=== PATIENT | female | born 1995 | race African-American/Black ===

== ENCOUNTER 2024-04-15 17:26 | Emergency (ER) | payer OTHER ==
[2024-04-15] MEDS ORDERED: MORPHINE 4 MG/ML SYR ONE (17:51)
[2024-04-15] MEDS ORDERED: ONDANSETRON 4 MG/2 ML VIAL ONE (17:51)
[2024-04-15] MEDS ORDERED: NA CHLORIDE 0.9% 1,000 ML ONE (17:52)
[2024-04-15 18:00] LABS: Absolute Eosinophils 0.2 K/uL (0-0.5); Absolute Lymphocytes (CBC) 1.9 K/uL (0.7-4.9); Absolute Monocytes 0.9 K/uL (0.1-1.3); Absolute Neutrophil 5.7 K/uL (1.8-8.0); Basophils % 0.5 % (0-1.3); Eosinophils % 2.4 % (0-4.4); Hematocrit 29.9 % (36.0-45.0); Hemoglobin 9.4 g/dL (12.0-15.0); Lymphocytes % 21.3 % (15.3-44.8); MCHC 31.5 g/dL (32.0-36.0); MCV 79.2 fL (80-100); MPV 9.6 fL (7.6-11.3); Monocytes % 10.2 % (3.3-12.3); Neutrophils % 65.6 % (41.7-73.7); Nucleated Red Blood Cells % 0.1 % (0-0); Platelets 314 thou/uL (152-406); RBC Red Blood Cell Count 3.78 M/uL (3.86-4.86); Red Cell Distribution Width 18.4 % (12.1-15.2)
[2024-04-15 18:19] LABS: AST/SGOT 12 U/L (15-37); Albumin 3.4 g/dL (3.4-5.0); Albumin/Globulin Ratio 0.9 (1.1-1.8); Alkaline Phosphatase 69 U/L (45-117); Anion Gap 6.9 mEq/L (5.0-15.0); BUN Blood Urea Nitrogen 6 mg/dL (7-18); Bicarbonate 25 mEq/L (21-32); Bilirubin Total 0.2 mg/dL (0.2-1.0); Globulin 3.9 g/dL (2.3-3.5); Glomerular Filtration Rate 94 ml/min (=/>90); Glucose Level 94 mg/dL (74-106); Lipase 26 U/L (13-75); Potassium 3.9 mEq/L (3.5-5.1); Protein, Total 7.3 g/dL (6.4-8.2); Sodium Level 140 mEq/L (136-145)
[2024-04-15 18:21] LABS: ALT/SGPT < 14 U/L (13-56)
[2024-04-15] MEDS ORDERED: KETOROLAC 30 MG/ML INJ ONE (18:39)
[2024-04-15 19:22] LABS: Specific Gravity 1.021 (1.005-1.030); Sqamous Epithelial <5 /HPF (None Seen); Urine Bacteria <20 /HPF (<20); Urine Bilirubin NEGATIVE (Negative); Urine Blood Negative (Negative); Urine Clarity Turbid (Clear); Urine Color Light-Yellow (Yellow); Urine Culture Reflex Order REFLEXED; Urine Glucose NEGATIVE (Negative); Urine Ketones NEGATIVE (Negative); Urine Microscopic Reflex YN ORDER UMIC; Urine Mucus Slight /HPF (None Seen); Urine Nitrite NEGATIVE (Negative); Urine Protein NEGATIVE (Negative); Urine RBC <5 /HPF (None Seen); Urine Urobilinogen Normal (Normal); Urine WBC 20-50 /HPF (<5); Urine WBC Clump Rare /HPF (None Seen); Urine Yeast (Budding) Trace /HPF (None Seen)
--- NOTE | 2024-04-15 19:48 | RAD REPORT ---
EXAMINATION: CT ABDOMEN AND PELVIS WITH CONTRAST CLINICAL INDICATION: Abdominal pain TECHNIQUE: CT abdomen and pelvis was performed, after the administration of 100 cc Isovue-300.. Sagit coni and coronal reconstructions were obtained. One or more of the following dose reduction techniques were used: Automated exposure control, adjustment of the mA and kV according to patient si ze, and iterative reconstruction. Unless otherwise specified, incidental findings do not require dedicated imaging follow-up. [id number]. Oral contrast was not given which limits evaluation of bowel and appendix. COMPARISON: none FINDINGS: Minimal bilateral pleural effusions Liver, spleen, pancreas, adrenals and kidneys unremarkable There is no evidence of diverticulitis. Normal appendix 2.9 cm low-density mass within the anterior tissue to the right of midline and pelvis. No adnexal mass : IMPRESSION: 2.9 cm low-density mass within the anterior tissue to the right of midline and pelvis consistent with abscess :
[2024-04-15] MEDS ORDERED: LIDOCAINE 1% 20 ML MDV ONE (20:03)
--- NOTE | 2024-04-15 20:34 | EDPHYS ---
Physician Documentation [facility] Name: Eva Grigsby Age: 28 yrs Sex: Female : 1995 Arrival Date: 04/15/2024 Time: 17:26 Bed 5 Private MD: ED Physician Jesse Bonilla HPI: 04/15 17:44 This 28 yrs old Black Female presents to ER via Ambulatory with complaints of Abdominal sb4 Pain. 17:44 patient reports lower abdominal pain associated with an abscess. she states that it sb4 developed about 4 days ago. she says that she gets these somewhat frequently but that they typically drain and resolve on their own. denies any fever. denies any chronic medical problems or daily medications. 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 - Infectious Disease History:: Denies. - Social history:: Smoking status: Patient denies any tobacco usage or history of. ROS: 17:46 Constitutional: Negative for fever, chills, and weight loss, sb4 17:46 Abdomen/GI: Positive for abdominal pain, 17:46 Skin: Positive for abscess, 17:46 All other systems are negative, Exam: 17:49 Head/Face: Normocephalic, atraumatic. Eyes: Extra-ocular motions intact. Periorbital sb4 areas with no swelling, redness, or edema. ENT: Mucous membranes moist. 17:49 Constitutional: The patient appears alert, awake, in obvious pain, uncomfortable, 17:49 Abdomen/GI: Inspection: abdomen appears normal, Bowel sounds: normal, Palpation: soft, mild abdominal tenderness, in all quadrants, 17:49 Skin: abscess, that is small, of the suprapubic area, with induration, with surrounding cellulitis, Vital Signs: 17:39 BP 143 / 97; Pulse 90; Resp 24; Temp 97.4; Pulse Ox 99% ; Weight 136.08 kg; Height 5 ll1 ft. 11 in. ; Pain 10/10; 18:38 BP 158 / 94; Pulse 79; Resp 18; Pulse Ox 100% on R/A; mb9 19:16 BP 135 / 82; Pulse 80; Resp 17; Temp 97.4; Pulse Ox 99% ; Pain 2/10; bm8 20:39 BP 129 / 88; Pulse 73; Resp 17; Temp 97.4; Pulse Ox 100% ; Pain 0/10; bm8 17:39 Body Mass Index 41.84 (136.08 kg, 180.34 cm) ll1 17:39 Pain Scale: Adult ll1 19:16 Pain Scale: Adult bm8 20:39 Pain Scale: Adult bm8 [place] Coma Score: 19:16 Eye Response: spontaneous(4). Motor Response: obeys commands(6). Verbal Response: bm8 oriented(5). Total: 15. 20:39 Eye Response: spontaneous(4). Motor Response: obeys commands(6). Verbal Response: bm8 oriented(5). Total: 15. Procedures: 20:33 I \T\ D: Incision and drainage was performed for an abscess of the suprapubic area sb4 Prepped with Betadine, Anesthetized with 3 ml's 1% Lidocaine. Incised with #11 blade. Drained moderate amount purulent fluid. Dressing: sterile 4x4 gauze, the patient tolerated the procedure well. MDM: 17:32 Patient medically screened. sb4 20:33 Data reviewed: vital signs, nurses notes, lab test result(s), radiologic studies, and sb4 as a result, I will discharge patient. Counseling: I had a detailed discussion with the patient and/or guardian regarding the historical points, exam findings, and any diagnostic results supporting the discharge/admit diagnosis, lab results, radiology results, the need for outpatient follow up, for definitive care, to return to the emergency department if symptoms worsen or persist or if there are any questions or concerns that arise at home. 04/15 17:38 Order name: CBC with Diff; Complete Time: 18:18 sb4 04/15 17:38 Order name: CMP; Complete Time: 18:24 sb4 04/15 17:38 Order name: Lipase; Complete Time: 18:24 sb4 04/15 17:38 Order name: Test, Urine; Complete Time: 19:23 sb4 04/15 17:38 Order name: Urinalysis w/ reflexes; Complete Time: 19:23 sb4 04/15 19:26 Order name: Urine Culture EDMS 04/15 17:38 Order name: CT Abd/Pelvis - IV Contrast Only; Complete Time: 19:49 sb4 04/15 17:38 Order name: IV Saline Lock; Complete Time: 17:56 sb4 04/15 17:38 Order name: Labs collected and sent; Complete Time: 17:56 sb4 04/15 19:52 Order name: Incision \T\ Drainage Setup; Complete Time: 20:00 sb4 Administered Medications: 17:50 Drug: Ondansetron IVP 4 mg IVP once; over 2 minutes Route: IVP; Site: right antecubital;mb9 18:38 Follow up: Response: No adverse reaction mb9 17:56 Drug: morphine IVP or IV 4 mg IVP once over 4 mins Route: IVP; Infused Over: 4 mins; mb9 Site: right antecubital; 18:38 Follow up: Response: No adverse reaction mb9 17:56 Drug: NS 0.9% IV 1000 ml IV at 1 bolus Per protocol; to be given as a bolus over 60 mb9 minutes Route: IV; Rate: 1 bolus; Site: right antecubital; 18:38 Follow up: Response: No adverse reaction; IV Status: Completed infusion mb9 18:42 Drug: Ketorolac IVP 30 mg IVP once Route: IVP; Site: right antecubital; mb9 20:00 Follow up: Response: No adverse reaction bm8 20:08 Drug: Lidocaine Infiltration (1 %) 20 ml 20 ml Infiltration once; to bedside {Note: by bm8 provider.} Volume: 20 ml; Route: Infiltration; Site: affected area; 20:40 Follow up: Response: No adverse reaction bm8 20:39 Drug: Trimethoprim-Sulfamethoxazole PO (160 mg-800 mg (DS) 1 tablet PO once Route: PO; bm8 20:40 Follow up: Response: Medication administered at discharge. bm8 Disposition Summary: 04/15/24 20:34 Discharge Ordered Notes: Location: Home sb4 Problem: new sb4 Symptoms: have improved sb4 Condition: Stable sb4 Diagnosis - Cutaneous abscess of abdominal wall sb4 Followup: sb4 - With: Emergency Department - When: As needed - Reason: Fever > 102 F, Worsening of condition Discharge Instructions: - Discharge Summary Sheet sb4 - Skin Abscess, [id number] sb4 - Incision and Drainage, Care After sb4 Forms: - Antibiotic Education sb4 - Patient Portal Instructions sb4 - Leadership Thank You Letter sb4 Prescriptions: - Bactrim DS 800-160 mg Oral Tablet - take 1 tablet ORAL route every 12 hours for 10 days; 20 tablet; Refills: 0, sb4 Product Selection Permitted Addendum: 04/17/2024 18:02 I was immediately available for consultation during this patient's visit. I did not e c2 personally see the patient or discuss the patient with the NENO. . Signatures: Dispatcher [employer] Alexandra Alvarez, RN RN ll1 Lea Kline, MIKE PANini sb4 Nelida Ragland RN RN mb9 Jesse Bonilla MD MD ec2 Vargas Casanova RN RN bm8 Corrections: (The following items were deleted from the chart) 04/15 17:39 17:39 Abdomen Pelvis W Con+CT.RAD.BRZ ordered. EDMS EDMS
--- NOTE | 2024-04-15 20:34 | ER ---
Nurse's Notes [facility] Name: Eva Grigsby Age: 28 yrs Sex: Female : 1995 Arrival Date: 04/15/2024 Time: 17:26 Bed 5 Private MD: Diagnosis: Cutaneous abscess of abdominal wall Presentation: 04/15 17:39 Chief complaint: Patient states: Abscess to lower abdominal area for 4 days. No ll1 drainage or fever. States small abscess to inner thighs also. Coronavirus screen: Client denies travel out of the [place] in the last 14 days. At this time, the client does not indicate any symptoms associated with coronavirus-19. Ebola Screen: Patient denies travel to an Ebola-affected area in the 21 days before illness onset. Initial Sepsis Screen: Does the patient meet any 2 criteria? No. Patient's initial sepsis screen is negative. Does the patient have a suspected source of infection? No. Patient's initial sepsis screen is negative. Risk Assessment: Do you want to hurt yourself or someone else? Patient reports no desire to harm self or others. Onset of symptoms was April 12, 2024. 17:39 Method Of Arrival: Ambulatory ll1 17:39 Acuity: CLAUDIA 3 ll1 Triage Assessment: 17:41 General: Appears distressed, uncomfortable, ill, Behavior is cooperative, appropriate ll1 for age, anxious. Pain: Complains of pain in abdomen Pain currently is 10 out of 10 on a pain scale. Quality of pain is described as aching. GI: Reports lower abdominal pain. Derm: Abscess located on abdomen is quarter sized, has no drainage, is hot to touch, is red. 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 - Infectious Disease History:: Denies. - Social history:: Smoking status: Patient denies any tobacco usage or history of. Screenin:37 [facility] ED Fall Risk Assessment (Adult) History of falling in the last 3 months, mb9 including since admission No falls in past 3 months (0 pts) Confusion or Disorientation No (0 pts) Intoxicated or Sedated No (0 pts) Impaired Gait No (0 pts) Mobility Assist Device Used No (0 pt) Altered Elimination No (0 pt) Score/Fall Risk Level 0 - 2 = Low Risk Oriented to surroundings, Maintained a safe environment, Educated pt \T\ family on fall prevention, incl call for assistance when getting out of bed. Abuse screen: Denies threats or abuse. Nutritional screening: No deficits noted. Tuberculosis screening: No symptoms or risk factors identified. Assessment: 17:56 General: Appears in no apparent distress. Behavior is calm, cooperative. Pain: mb9 Complains of pain in abdomen and suprapubic area Pain currently is 10 out of 10 on a pain scale. Quality of pain is described as throbbing, Pain began 2-3 days ago. Is continuous. Neuro: Moe Agitation-Sedation Scale (RASS): 0 - Alert and Calm Level of Consciousness is awake, alert, obeys commands, Oriented to person, place, time, situation, Appropriate for age. Cardiovascular: Patient's skin is warm and dry. Respiratory: Airway is patent Respiratory effort is even, unlabored, Respiratory pattern is regular, agonal. GI: Bowel sounds present X 4 quads. Abd is soft and non tender X 4 quads. : No signs and/or symptoms were reported regarding the genitourinary system. EENT: No signs and/or symptoms were reported regarding the EENT system. Derm: Abscess located on abdomen is quarter sized, has no drainage, is red, is raised. Musculoskeletal: Range of motion: intact in all extremities. 19:16 Reassessment: Patient appears in no apparent distress at this time. Patient and/or bm8 family updated on plan of care and expected duration. Pain level reassessed. Patient is alert, oriented x 3, equal unlabored respirations, skin warm/dry/pink. Pain: Pain currently is 2 out of 10 on a pain scale. Derm: Abscess located on groin is quarter sized, has no drainage, is red, is raised. 20:39 Reassessment: Patient appears in no apparent distress at this time. Patient and/or bm8 family updated on plan of care and expected duration. Pain level reassessed. Patient is alert, oriented x 3, equal unlabored respirations, skin warm/dry/pink. Patient denies pain at this time. Patient states feeling better. Patient states symptoms have improved. Vital Signs: 17:39 BP 143 / 97; Pulse 90; Resp 24; Temp 97.4; Pulse Ox 99% ; Weight 136.08 kg; Height 5 ll1 ft. 11 in. ; Pain 10/10; 18:38 BP 158 / 94; Pulse 79; Resp 18; Pulse Ox 100% on R/A; mb9 19:16 BP 135 / 82; Pulse 80; Resp 17; Temp 97.4; Pulse Ox 99% ; Pain 2/10; bm8 20:39 BP 129 / 88; Pulse 73; Resp 17; Temp 97.4; Pulse Ox 100% ; Pain 0/10; bm8 17:39 Body Mass Index 41.84 (136.08 kg, 180.34 cm) ll1 17:39 Pain Scale: Adult ll1 19:16 Pain Scale: Adult bm8 20:39 Pain Scale: Adult bm8 [place] Coma Score: 19:16 Eye Response: spontaneous(4). Motor Response: obeys commands(6). Verbal Response: bm8 oriented(5). Total: 15. 20:39 Eye Response: spontaneous(4). Motor Response: obeys commands(6). Verbal Response: bm8 oriented(5). Total: 15. ED Course: 17:31 Patient arrived in ED. mg5 17:31 Lea Kline PA-C is PHCP. sb4 17:31 Jesse Bonilla MD is Attending Physician. sb4 17:31 Arm band placed on Patient placed in an exam room, on a stretcher. ll1 17:34 Nelida Ragland, TABITHA is Primary Nurse. mb9 17:37 Placed in gown. Bed in low position. Call light in reach. Side rails up X 1. Provided mb9 Education on: press call light if needing anything. Client placed on continuous cardiac and pulse oximetry monitoring. NIBP monitoring applied. 17:41 Triage completed. ll1 17:56 CBC with Diff Sent. mb9 17:56 CMP Sent. mb9 17:56 Lipase Sent. mb9 17:57 Door closed. Noise minimized. Warm blanket given. Pillow given. mb9 17:57 Initial lab(s) drawn, by me, sent to lab. Inserted saline lock: 20 gauge in right mb9 antecubital area, using aseptic technique. Blood collected. Flushed with 10 mL NS. 18:57 Report given to TABITHA OGDEN. mb9 19:41 CT Abd/Pelvis - IV Contrast Only In Process Unspecified. EDMS 20:09 Assist provider with I \T\ D: of an abscess on just above the pubic line. Set up I\T\D bm 8 tray. Performed by Lea Kline PA-C Dressing with 4X4s, tape Patient tolerated well. 20:39 Provided Education on: post er care and wound care. bm8 20:39 IV discontinued, intact, bleeding controlled, No redness/swelling at site. Pressure bm8 dressing applied. Administered Medications: 17:50 Drug: Ondansetron IVP 4 mg IVP once; over 2 minutes Route: IVP; Site: right antecubital;mb9 18:38 Follow up: Response: No adverse reaction mb9 17:56 Drug: morphine IVP or IV 4 mg IVP once over 4 mins Route: IVP; Infused Over: 4 mins; mb9 Site: right antecubital; 18:38 Follow up: Response: No adverse reaction mb9 17:56 Drug: NS 0.9% IV 1000 ml IV at 1 bolus Per protocol; to be given as a bolus over 60 mb9 minutes Route: IV; Rate: 1 bolus; Site: right antecubital; 18:38 Follow up: Response: No adverse reaction; IV Status: Completed infusion mb9 18:42 Drug: Ketorolac IVP 30 mg IVP once Route: IVP; Site: right antecubital; mb9 20:00 Follow up: Response: No adverse reaction bm8 20:08 Drug: Lidocaine Infiltration (1 %) 20 ml 20 ml Infiltration once; to bedside {Note: by bm8 provider.} Volume: 20 ml; Route: Infiltration; Site: affected area; 20:40 Follow up: Response: No adverse reaction bm8 20:39 Drug: Trimethoprim-Sulfamethoxazole PO (160 mg-800 mg (DS) 1 tablet PO once Route: PO; bm8 20:40 Follow up: Response: Medication administered at discharge. bm8 Medication: 17:37 VIS not applicable for this client. mb9 Outcome: 20:34 Discharge ordered by . sb4 20:39 Discharged to home ambulatory, bm8 20:39 Condition: stable 20:39 Discharge instructions given to patient, family, Instructed on discharge instructions, follow up and referral plans. no drinking with medication, no driving heavy equipment, medication usage, safety practices, Demonstrated understanding of instructions, follow-up care, medications, 20:41 Prescriptions given X 1, bm8 20:42 Patient left the ED. bm8 Signatures: Dispatcher [employer] EDAlexandra Bess, RN RN ll1 Lea Kline, PAMeleC PANini sb4 Nelida Ragland RN RN mb9 Deidra Mclean 5 Vargas Casanova RN RN bm8 Corrections: (The following items were deleted from the chart) 20: 17:57 No provider procedures requiring assistance completed. mb9 bm8
[2024-04-15] MEDS ORDERED: SMZ./TMP. 800/160 MG TABLET ONE (20:35)
[2024-04-16 01:09] VITALS: TEMP 97.4
[2024-04-16 01:15] VITALS: BP 129/88; O2SAT 100
== END 2024-04-15 20:42 | disposition home or self-care (01) ==
LOC: ER 17:26
PROC: 0H97XZZ Drainage of Abdomen Skin, External Approach (ICD-10-PCS; principal; 2024-04-15)
DX: L02.211 Cutaneous abscess of abdominal wall (principal)
CPT/HCPCS: 87088; 85025; 81001; 87086; 36415; 81025; 83690; 80053; 74177; 10060; Q9967; J2001; J2405; J7030

== ENCOUNTER 2025-03-22 18:40 | Emergency (ER) | payer OTHER ==
[2025-03-22] MEDS ORDERED: ONDANSETRON 4 MG/2 ML VIAL ONE (19:30)
[2025-03-22] MEDS ORDERED: HYDROMORPHONE HCL 0.5 MG/0.5 ML INJ ONE (19:30)
[2025-03-22] MEDS ORDERED: NA CHLORIDE 0.9% 2,000 ML ONE (19:30)
[2025-03-22 19:39] LABS: Absolute Lymphocytes (CBC) 0.2 K/uL (0.7-4.9); Hematocrit 35.7 % (36.0-45.0); Hemoglobin 11.4 g/dL (12.0-15.0); MCH 27.1 pg (27.0-35.0); MCHC 31.9 g/dL (32.0-36.0); MCV 84.9 fL (80-100); MPV 9.9 fL (7.6-11.3); Nucleated RBC Absolute Count 0.0 (0-0); Nucleated Red Blood Cells % 0.1 % (0-0); RBC Red Blood Cell Count 4.20 M/uL (3.86-4.86); White Blood Count 6.20 thou/uL (4.3-10.9)
[2025-03-22 19:57] LABS: ALT/SGPT 21 U/L (13-56); Albumin 3.6 g/dL (3.4-5.0); Albumin/Globulin Ratio 0.9 (1.1-1.8); Alkaline Phosphatase 66 U/L (45-117); Anion Gap 9.7 mEq/L (5.0-15.0); BUN Blood Urea Nitrogen 11 mg/dL (7-18); Globulin 4.1 g/dL (2.3-3.5); Glucose Level 112 mg/dL (74-106); Lipase 23 U/L (13-75); Potassium 3.7 mEq/L (3.5-5.1)
[2025-03-22 20:00] LABS: AST/SGOT < 10 U/L (15-37)
[2025-03-22 20:06] LABS: Blood Morphology Comment NOT SEEN (NOT SEEN); White Blood Cell Scan OK (OK)
--- NOTE | 2025-03-22 21:00 | RAD REPORT ---
Abdomen Exam Limited: 03/22/2025 8:12 PM CLINICAL HISTORY: EPIGASTRIC PAIN STUDY: Limited right upper quadrant ultrasound of abdomen. COMPARISON: MRCP 02/28/2025, CT 02/27/2025 FINDINGS: Liver: Limited evaluation. Hepatic steatosis noted. Bile ducts: Borderline dilated common bile duct measuring 6 mm. On the MRI from February 2025, the comm on bile duct measures close to 5 mm. This is probably due to measurement error. Gallbladder: Gallstones present. Borderline gallbladder wall thickening. No pericholecystic fluid. No sonographic Fitzpatrick sign. IMPRESSION: Cholelithiasis with borderline gallbladder wall thickening. The common bile duct measures 6 mm, previ ously 5 mm on the MRI from 02/28/2025. This is probably within measurement error. These imaging findings are nonspecific for acute cholecystitis and could reflect an alternative process.
--- NOTE | 2025-03-22 21:20 | EDPHYS ---
Physician Documentation [facility] Name: Eva Bonilla Age: 29 yrs Sex: Female : 1995 Arrival Date: 03/22/2025 Time: 18:40 Bed 19 Private MD: ED Physician Eddie Gomes HPI: 03/22 19:16 This 29 yrs old Black Female presents to ER via EMS with complaints of Abdominal Pain. tt7 19:16 LUQ abdominal pain that radiates to back. Onset: The symptoms/episode began/occurred tt7 today. Severity of symptoms: Pain is currently a 8 / 10. The patient has experienced a previous episode, approximately 3 weeks ago. The patient has been recently been admitted at [facility], was discharged a couple of weeks ago. Recently told she had pancreatitis and a gallstone a few weeks ago, did not have any surgical intervention. APPLIED PSYCHOLOGY CHAIR: 21:36 Not kj2 Historical: - Allergies: 19:05 No Known Allergies; kj2 - Immunization history:: Adult Immunizations unknown. - Infectious Disease History:: Denies. - Social history:: Smoking status: unknown. ROS: 19:18 Constitutional: negative for fever. Cardiovascular: negative for chest pain. tt7 Respiratory: negative for shortness of breath. MS/Extremity: negative for injury and deformity. Skin: negative for rash. Neuro: negative for focal weakness. 19:18 Abdomen/GI: Positive for abdominal pain, nausea and vomiting, Exam: 19:19 Constitutional: vital signs reviewed, well appearing. Head/Face: normocephalic, tt7 atraumatic. Eyes: no conjunctival injection, anicteric sclerae. ENT: mucus membranes moist. Neck: trachea midline, no JVD, no meningismus. Chest/axilla: normal chest wall appearance and motion, nontender, no crepitus. Cardiovascular: regular rate and rhythm, no murmurs, no rubs, no lower extremity edema. Respiratory: normal respiratory effort, no accessory muscle use, lungs CTAB. Abdomen/GI: soft, nondistended, moderate left upper quadrant tenderness without guarding or rebound, negative Fitzpatrick's sign, no McBurney point tenderness. Back: normal ROM. Skin: warm, dry, intact, normal turgor, normal color, no rash. MS/ Extremity: normal ROM of extremities, no gross deformities. Neuro: alert and oriented with appropriate mental status, normal speech, follows commands, no focal neurologic deficits. Psych: appropriate mood and affect. Vital Signs: 19:05 BP 112 / 65; Pulse 104; Resp 18; Pulse Ox 100% on R/A; Height 5 ft. 11 in. ; kj2 20:00 BP 114 / 66; Pulse 98; Resp 18; Temp 98; Pulse Ox 100% on R/A; kj2 21:00 BP 116 / 70; Pulse 99; Resp 20; Temp 98; Pulse Ox 100% on R/A; kj2 MDM: 19:06 Medical Screening Exam initiated cp 19:19 Differential Diagnosis Pancreatitis, cholecystitis, choledocholithiasis, gastritis, tt7 GERD. Data reviewed: vital signs, nurses notes. ED course: 29-year-old female with abdominal pain radiating to her back, multiple episodes of vomiting, her vital signs are stable, she does not have any peritoneal signs on exam, has a recent history of pancreatitis and was told she had a gallstone, did not receive surgical intervention, will treat her symptoms with opioid analgesia and antiemetics, will administer 2 L of IV fluids, will check basic laboratory studies and I will reviewed patient's recent medical records to determine most appropriate imaging to obtain. 19:33 Data reviewed: old medical records, I reviewed patient's recent inpatient medical tt7 records, presented with similar symptoms, had pancreatitis, had an MRCP performed which was negative for choledocholithiasis, she improved with supportive care and was discharged with plans for outpatient cholecystectomy. 20:08 Data reviewed: lab test result(s), amylase and lipase, Beta HCG: CBC, electrolytes, tt7 hepatic panel. 21:13 Data reviewed: radiologic studies, ultrasound. Consideration of Admission/Observation tt7 Escalation of care including admission/observation considered. Test considered but Not performed: MRI: . CT: . Historians other than the Patient: Family Member: . Care significantly affected by the following Social Determinants of Health:. Counseling: I had a detailed discussion with the patient and/or guardian regarding the historical points, exam findings, and any diagnostic results supporting the discharge/admit diagnosis, lab results, radiology results, the need for outpatient follow up, to return to the emergency department if symptoms worsen or persist or if there are any questions or concerns that arise at home. ED course: Laboratory studies are all totally reassuring, lipase is normal, liver enzymes are normal, no leukocytosis, I reassessed the patient and her pain has resolved after opioid analgesia, she is able to tolerate oral intake after antiemetic, I discussed results of laboratory studies and her ultrasound, I do not believe this patient to have acute cholecystitis as she has a negative Fitzpatrick sign, reassuring laboratory studies, and no specific findings of cholecystitis on ultrasound, she does have gallstones present, given her reassuring lab studies and response to pain control I suspect biliary colic, Dr. Anderson has plans to perform outpatient cholecystectomy, her bile duct on her ultrasound was 6 mm and it was 5 mm on prior MRCP which was negative, I considered but do not believe it is necessary for patient to have repeat MRCP at this time given total resolution of her symptoms and reassuring lab studies, we discussed tricked return precautions with the patient and need for very close outpatient follow-up with her general surgeon on Tuesday morning regarding her symptoms, I counseled her on dietary changes necessary to manage biliary colic, I prescribed her an antiemetic to take home and she will be discharged in stable condition. Emergency department evaluation is reassuring. I do not suspect life-threatening process. Patient is stable and not in need of emergent medical intervention. I had a detailed discussion with the patient regarding the historical points, exam findings, emergency department evaluation, diagnostic results, and the discharge diagnosis. I discussed outpatient management of the patient's condition. I discussed the need for outpatient follow-up with primary care and relevant specialist. I discussed return precautions including the need to return to the ED if symptoms do not improve, worsen, or if there are any questions or concerns that arise at home. The patient was discharged in stable condition. 03/22 19:16 Order name: CBC with Diff; Complete Time: 20:07 tt7 03/22 19:16 Order name: CMP; Complete Time: 20:07 tt7 03/22 19:16 Order name: Lipase; Complete Time: 20:07 tt7 03/22 19:22 Order name: Test, Serum; Complete Time: 20:07 tt7 03/22 19:42 Order name: CBC Smear Scan; Complete Time: 20:07 EDMS 03/22 19:34 Order name: US Abdomen Limited; Complete Time: 21:03 tt7 03/22 19:16 Order name: IV Saline Lock; Complete Time: 19:36 tt7 03/22 19:16 Order name: Labs collected and sent; Complete Time: 19:36 tt7 Administered Medications: 19:38 Drug: Ondansetron IVP 4 mg IVP once; over 2 minutes Route: IVP; Site: left antecubital; kj2 21:37 Follow up: Response: No adverse reaction kj2 19:38 Drug: HYDROmorphone IVP 0.5 mg IVP once Route: IVP; Site: left antecubital; kj2 21:36 Follow up: Response: No adverse reaction kj2 20:37 Drug: NS 0.9% IV 2000 ml IV at 1 bolus Per protocol; to be given as a bolus over 60 kj2 minutes Route: IV; Rate: 1 bolus; Site: right antecubital; 21:37 Follow up: IV Status: Completed infusion kj2 21:32 Drug: HYDROcodone-acetaminophen PO 5 mg-325 mg 1 tabs PO once Route: PO; kj2 21:32 Follow up: Response: Medication administered at discharge. kj2 Disposition: 21:20 Co-signature as Attending Physician, Eddie Gomes DO. tt7 Disposition Summary: 03/22/25 21:19 Discharge Ordered Notes: Location: Home tt7 Problem: an acute exacerbation tt7 Symptoms: are resolved tt7 Condition: Stable tt7 Diagnosis - Other cholelithiasis without obstruction tt7 - Upper abdominal pain, unspecified tt7 - Nausea with vomiting, unspecified tt7 Followup: tt7 - With: Emergency Department - When: As needed - Reason: Followup: tt7 - With: Cachorro Anderson MD - When: 1 - 2 days - Reason: Recheck today's complaints, Continuance of care, Re-evaluation by your physician Discharge Instructions: - Discharge Summary Sheet tt7 - Cholelithiasis tt7 Forms: - Medication Reconciliation Form tt7 - Antibiotic Education tt7 - Prescription Opioid Use tt7 - Patient Portal Instructions tt7 - Leadership Thank You Letter tt7 Prescriptions: - Zofran 4 mg Oral tablet - take 1 tablet ORAL route every 8 hours As needed; 20 tablet; Refills: 0, tt7 Product Selection Permitted Signatures: Dispatcher [employer] EDPA Arie Vera PA-C PA-C cp Jordan, Krystal, RN RN kj2 Tarleton, Eddie, DO DO tt7
--- NOTE | 2025-03-22 21:20 | ER ---
Nurse's Notes [facility] Name: Eva Bonilla Age: 29 yrs Sex: Female : 1995 Arrival Date: 03/22/2025 Time: 18:40 Bed 19 Private MD: Diagnosis: Other cholelithiasis without obstruction;Upper abdominal pain, unspecified;Nausea with vomiting, unspecified Presentation: 03/22 19:06 Chief complaint: Patient's son or daughter states: abdominal pain since this morning kj2 and vomiting bile. Patient feels it is an exacerbation of her Pancreatitis. Coronavirus screen: Client denies travel out of the [place] in the last 14 days. Ebola Screen: No symptoms or risks identified at this time. Initial Sepsis Screen: Does the patient meet any 2 criteria? No. Patient's initial sepsis screen is negative. Does the patient have a suspected source of infection? No. Patient's initial sepsis screen is negative. Risk Assessment: Do you want to hurt yourself or someone else? Patient reports no desire to harm self or others. Onset of symptoms was March 22, 2025. 19:06 Method Of Arrival: EMS: [facility] kj2 19:06 Acuity: CLAUDIA 3 kj2 Triage Assessment: 19:07 General: see nurse general assessment. 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 - Infectious Disease History:: Denies. - Social history:: Smoking status: unknown. Screenin:08 [facility] ED Fall Risk Assessment (Adult) History of falling in the last 3 months, kj2 including since admission No falls in past 3 months (0 pts) Confusion or Disorientation No (0 pts) Intoxicated or Sedated No (0 pts) Impaired Gait No (0 pts) Mobility Assist Device Used No (0 pt) Altered Elimination No (0 pt) Score/Fall Risk Level. Abuse screen: Denies threats or abuse. Denies injuries from another. Nutritional screening: No deficits noted. Tuberculosis screening: No symptoms or risk factors identified. Assessment: 19:03 General: Appears in no apparent distress. Behavior is crying. Pain: Complains of pain kj2 in abdominal pain with vomiting bile since this morning Pain currently is 8 out of 10 on a pain scale. Neuro: Level of Consciousness is awake, alert, obeys commands, Oriented to person, place, time, situation. Cardiovascular: Patient's skin is warm and dry. Respiratory: Airway is patent Respiratory effort is unlabored. GI: Reports upper abdominal pain. : No signs and/or symptoms were reported regarding the genitourinary system. 19:06 GI: Bowel sounds present X 4 quads. Abd is non tender. kj2 20:00 Reassessment: Patient appears in no apparent distress at this time. Patient and/or kj2 family updated on plan of care and expected duration. Pain level reassessed. 21:00 Reassessment: Patient appears in no apparent distress at this time. Patient and/or kj2 family updated on plan of care and expected duration. Pain level reassessed. Patient is alert, oriented x 3, equal unlabored respirations, skin warm/dry/pink. Vital Signs: 19:05 BP 112 / 65; Pulse 104; Resp 18; Pulse Ox 100% on R/A; Height 5 ft. 11 in. ; kj2 20:00 BP 114 / 66; Pulse 98; Resp 18; Temp 98; Pulse Ox 100% on R/A; kj2 21:00 BP 116 / 70; Pulse 99; Resp 20; Temp 98; Pulse Ox 100% on R/A; kj2 ED Course: 19:03 Patient arrived in ED. kj2 19:06 Arie Vera PA-C is PHCP. cp 19:06 Eddie Gomes DO is Attending Physician. cp 19:07 Triage completed. kj2 19:08 Patient has correct armband on for positive identification. Provided Education on: call kj2 light. 19:24 Elisabeth Krishna, RN is Primary Nurse. kj2 19:36 Initial lab(s) drawn, by lab assistant, sent to lab. Inserted saline lock: 20 gauge in left ts3 antecubital area, using aseptic technique. Blood collected. Flushed with 10 mL NS. 20:14 US Abdomen Limited In Process Unspecified. EDMS 21:18 Cachorro Anderson MD is Referral Physician. tt7 21:30 No provider procedures requiring assistance completed. IV discontinued, intact, kj2 bleeding controlled, No redness/swelling at site. Pressure dressing applied. Administered Medications: 19:38 Drug: Ondansetron IVP 4 mg IVP once; over 2 minutes Route: IVP; Site: left antecubital; kj2 21:37 Follow up: Response: No adverse reaction kj2 19:38 Drug: HYDROmorphone IVP 0.5 mg IVP once Route: IVP; Site: left antecubital; kj2 21:36 Follow up: Response: No adverse reaction kj2 20:37 Drug: NS 0.9% IV 2000 ml IV at 1 bolus Per protocol; to be given as a bolus over 60 kj2 minutes Route: IV; Rate: 1 bolus; Site: right antecubital; 21:37 Follow up: IV Status: Completed infusion kj2 21:32 Drug: HYDROcodone-acetaminophen PO 5 mg-325 mg 1 tabs PO once Route: PO; kj2 21:32 Follow up: Response: Medication administered at discharge. kj2 Medication: 21:36 VIS not applicable for this client. kj2 Outcome: 21:19 Discharge ordered by . tt7 21:36 Discharged to home ambulatory, kj2 21:36 Condition: stable 21:36 Discharge instructions given to patient, Instructed on discharge instructions, follow up and referral plans. Demonstrated understanding of instructions, follow-up care, medications, 21:58 Patient left the ED. kj2 Signatures: Dispatcher [employer] EDMS Arie Vera PA-C PA-C cp Jordan, Krystal, RN RN kj2 Marcia Landry ts3 Eddie Gomes DO DO tt7
[2025-03-22] MEDS ORDERED: HYDROCODONE/APAP 5/325 MG TAB ONE (21:21)
[2025-03-22 22:18] VITALS: TEMP 98; O2SAT 100
[2025-03-22 22:22] VITALS: BP 116/70
== END 2025-03-22 21:58 | disposition home or self-care (01) ==
LOC: ER 18:40
DX: K80.80 Other cholelithiasis without obstruction (principal); R11.2 Nausea with vomiting, unspecified
CPT/HCPCS: 96361; 85025; 36415; 84703; 83690; 80053; 76705; 96375; 96374; 99284; J1171; J2405; J7030